=== PATIENT | female | born 1950 | race Native Hawaiian/Other Pacific Islander ===

== ENCOUNTER 2017-01-23 15:23 | Outpatient (CLI) | payer OTHER ==
[2017-01-23 15:58] LABS: POTASSIUM 3.9 mmol/L (3.6-5.2); SODIUM 139 mmol/L (136-145)
[2017-01-23 16:08] LABS: PLATELET COUNT 298 K/uL (152-353)
== END 2017-01-23 19:18 | disposition home or self-care (01) ==
LOC: LAB 15:23
PROVIDERS: Nurse Practitioner Family
DX: E66.9 Obesity, unspecified (principal); R60.9 Edema, unspecified; J32.9 Chronic sinusitis, unspecified; I10 Essential (primary) hypertension; M19.90 Unspecified osteoarthritis, unspecified site; E55.9 Vitamin D deficiency, unspecified; Z79.899 Other long term (current) drug therapy
CPT/HCPCS: 80053; 80061; 82306; 82607; 83036; 84436; 84443; 85027

== ENCOUNTER 2017-07-01 14:15 | Outpatient (CLI) | payer OTHER | END 2017-07-01 19:00 | disposition home or self-care (01) | LOC: MAMMO 14:15 | DX: Z12.31 Encounter for screening mammogram for malignant neoplasm of breast (principal); Z13.820 Encounter for screening for osteoporosis ==

== ENCOUNTER 2017-08-08 19:32 | Emergency (ER) | payer OTHER ==
[~2017-08-08] VITALS: Ht 154.9 cm; Wt 94.8 kg
[2017-08-08 20:59] LABS: PLATELET COUNT 284 K/uL (152-353)
[2017-08-08 21:07] LABS: POTASSIUM 3.2 mmol/L (3.6-5.2); SODIUM 136 mmol/L (136-145)
[2017-08-08 21:45] VITALS: BP 182/68; TEMP 98.1
== END 2017-08-08 21:48 | disposition home or self-care (01) ==
LOC: ED 19:32
DX: J20.9 Acute bronchitis, unspecified (principal); J02.0 Streptococcal pharyngitis
CPT/HCPCS: 36415; 80053; 85027; 87804; 87880; 99283

== ENCOUNTER 2018-01-06 13:57 | Outpatient (CLI) | payer OTHER ==
[2018-01-06 14:28] LABS: POTASSIUM 3.9 mmol/L (3.6-5.2)
[2018-01-06 14:33] LABS: PLATELET COUNT 279 K/uL (152-353)
== END 2018-01-06 20:07 | disposition home or self-care (01) ==
LOC: LAB 13:57
PROVIDERS: Nurse Practitioner Family
DX: I10 Essential (primary) hypertension (principal); R53.82 Chronic fatigue, unspecified; R53.81 Other malaise; Z79.899 Other long term (current) drug therapy; Z51.81 Encounter for therapeutic drug level monitoring
CPT/HCPCS: 80053; 80061; 83036; 84436; 84443; 85027

== ENCOUNTER 2018-04-05 13:10 | Emergency (ER) | payer OTHER ==
[~2018-04-05] VITALS: Ht 154.9 cm; Wt 113.4 kg
[2018-04-05] MEDS ORDERED: KEPPRA750 MG PO (13:51)
[2018-04-05] MEDS ORDERED: CLOP75TA2 PO (13:51)
[2018-04-05] MEDS ORDERED: METOPROLOL25 M1 PO (13:54)
[2018-04-05] MEDS ORDERED: RANI150T78 PO (13:54)
[2018-04-05] MEDS ORDERED: CODEINE/APAP1 TA1 (13:56)
[2018-04-05 14:11] LABS: PLATELET COUNT 237 K/uL (152-353)
[2018-04-05 14:24] LABS: POTASSIUM 3.2 mmol/L (3.6-5.2)
[2018-04-05 15:44] VITALS: BP 128/60; TEMP 97.8
== END 2018-04-05 15:40 | disposition home or self-care (01) ==
LOC: ED 13:10
DX: J06.9 Acute upper respiratory infection, unspecified (principal)
CPT/HCPCS: 36415; 80053; 85027; 87804; 99283

== ENCOUNTER 2018-12-26 16:33 | Emergency (ER) | payer OTHER ==
[~2018-12-26] VITALS: Ht 154.9 cm; Wt 113.4 kg
[~2018-12-26 16:33] MED LIST: CLOP75TA2 PO; CODEINE/APAP1 TA1; KEPPRA750 MG PO; METOPROLOL25 M1 PO; RANI150T78 PO
[2018-12-26 20:06] VITALS: BP 161/74; TEMP 98.1
== END 2018-12-26 20:05 | disposition home or self-care (01) ==
LOC: ED 16:33
DX: R05 Cough (principal); J06.9 Acute upper respiratory infection, unspecified
CPT/HCPCS: 87502; 87651; 96372; 99283; J0696

== ENCOUNTER 2020-09-22 14:49 | Inpatient (IN) | payer OTHER ==
[~2020-09-22] VITALS: Ht 154.9 cm; Wt 91.2 kg
[2020-09-22 15:22] VITALS: BP 205/101; TEMP 97.5
[2020-09-22 18:00] VITALS: BP 171/74; TEMP 98.8
[2020-09-22 19:00] VITALS: BP 169/87
[2020-09-22 19:11] LABS: POTASSIUM 3.2 mmol/L (3.6-5.2); SODIUM 138 mmol/L (136-145)
[2020-09-22 19:12] LABS: PLATELET COUNT 275 K/uL (152-353)
[2020-09-22 19:31] VITALS: TEMP 99.2
[2020-09-22 20:00] VITALS: BP 157/70
[2020-09-22 21:00] VITALS: BP 180/72
[2020-09-23 00:42] VITALS: BP 148/70; TEMP 98.9; Ht 154.9 cm; Wt 91.2 kg
[2020-09-23] MEDS ORDERED: XYZAL ALLERGY 245 MG PO (00:48)
[2020-09-23] MEDS ORDERED: HYDR25TA60 PO (00:48)
[2020-09-23] MEDS ORDERED: [UNRECOGNIZED DRUG - CODE] PO (00:51)
[2020-09-23] MEDS ORDERED: THIA100T8 PO ×2 (00:52→02:28)
[2020-09-23] MEDS ORDERED: MONTELUKAST SOD10 MG PO (02:24)
[2020-09-23] MEDS ORDERED: ESCITALOPRAM20 MG PO (02:26)
[2020-09-23] MEDS ORDERED: ZINC SULFATE220 M2 PO (02:30)
[2020-09-23] MEDS ORDERED: VITAMIN C 500 M1 TAB PO (02:30)
[2020-09-23] MEDS ORDERED: VITAMIN D3 PO (02:31)
[2020-09-23 04:00] VITALS: BP 153/82; TEMP 97.8
[2020-09-23 06:05] LABS: PLATELET COUNT 272 K/uL (152-353)
[2020-09-23 06:29] LABS: POTASSIUM 3.4 mmol/L (3.6-5.2)
[2020-09-23 08:00] VITALS: BP 143/68; TEMP 98.2
[2020-09-23 12:00] VITALS: BP 143/71; TEMP 98.1
[2020-09-23 16:00] VITALS: BP 160/61; TEMP 98.1
[2020-09-23] MEDS ORDERED: ALPHAGAN P0.1 % IO (17:31)
[2020-09-23] MEDS ORDERED: DORZOLAMIDE HYD1 SOL IO (17:33)
[2020-09-23] MEDS ORDERED: XELPROS0.005 % IO (17:34)
[2020-09-23 20:00] VITALS: BP 136/60; TEMP 98.4
[2020-09-24] VITALS (7 sets, daily range): BP systolic 130–168; BP diastolic 59–77; TEMP 97.7–98.3
[2020-09-24 06:22] LABS: PLATELET COUNT 321 K/uL (152-353)
[2020-09-24 06:37] LABS: POTASSIUM 3.8 mmol/L (3.6-5.2)
[2020-09-25 04:00] VITALS: BP 137/58; TEMP 98.2
[2020-09-25 06:20] LABS: PLATELET COUNT 372 K/uL (152-353)
[2020-09-25 06:38] LABS: POTASSIUM 3.5 mmol/L (3.6-5.2)
[2020-09-25 08:00] VITALS: BP 153/79; TEMP 97.8
[2020-09-25 12:00] VITALS: BP 144/63; TEMP 98.1
[2020-09-25 16:00] VITALS: BP 158/72; TEMP 97.8
[2020-09-25 20:00] VITALS: BP 148/50; TEMP 98.2
[2020-09-26] VITALS (7 sets, daily range): BP systolic 129–171; BP diastolic 62–82; TEMP 97.4–98.4
[2020-09-26 06:36] LABS: PLATELET COUNT 388 K/uL (152-353)
[2020-09-26 07:09] LABS: POTASSIUM 3.5 mmol/L (3.6-5.2)
[2020-09-27 03:27] VITALS: BP 146/62; TEMP 97.9
[2020-09-27 05:53] LABS: PLATELET COUNT 383 K/uL (152-353)
[2020-09-27 06:24] LABS: POTASSIUM 3.6 mmol/L (3.6-5.2)
[2020-09-27 08:00] VITALS: BP 139/61; TEMP 97.8
[2020-09-27 12:00] VITALS: BP 131/51; TEMP 97.4
[2020-09-27] MEDS ORDERED: VITAMIN C PO (12:35)
== END 2020-09-27 15:30 | disposition home or self-care (01) | DRG 177 ==
LOC: ED 14:49 → MED/SURG 21:14
PROVIDERS: Emergency Medicine Emergency Medical Services; ADMIT Family Medicine; ATTEND Internal Medicine Endocrinology, Diabetes & Metabolism
DX: U07.1 COVID-19 (principal); J96.01 Acute respiratory failure with hypoxia; G40.802 Other epilepsy, not intractable, without status epilepticus; I10 Essential (primary) hypertension; H40.89 Other specified glaucoma; F32.89 Other specified depressive episodes; E87.6 Hypokalemia
CPT/HCPCS: 36415; 80053; 82728; 83605; 83880; 84484; 85027; 85379; 87040; 87077; 87185; 87186; 87205; 87635; 93005; 94760; 96360; 96365; 96375; 99284; J0456; J0461; J0696; J1100; J1650; U0003